=== PATIENT | female | born 1965 | race Caucasian/White ===

== ENCOUNTER → 2016-05-10 | Outpatient (REF) | payer OTHER ==
[2016-05-10 16:25] LABS: ANION GAP 9 MEQ/L (8-16); BLOOD UREA NITROGEN 7 MG/DL (7-18); CALCIUM LEVEL 9.5 MG/DL (8.5-10.1); CARBON DIOXIDE LEVEL 27 MEQ/L (21-32); CHLORIDE LEVEL 105 MEQ/L (98-107); CREATININE FOR GFR 0.75 MG/DL (0.55-1.02); GLOMERULAR FILTRATION RATE > 60.0 (>51); GLUCOSE, FASTING 145 MG/DL (70-105); POTASSIUM SERUM 4.7 MEQ/L (3.5-5.1); SODIUM LEVEL 141 MEQ/L (136-145)
== END ==
LOC: M SFHCPLAZ 12:08
PROVIDERS: ATTEND Nurse Practitioner Family
DX: E11.9 Type 2 diabetes mellitus without complications (principal)

== ENCOUNTER → 2017-10-26 | Outpatient (REF) | payer OTHER | LOC: M LAB REF 18:53 | DX: Z12.4 Encounter for screening for malignant neoplasm of cervix (principal); N95.2 Postmenopausal atrophic vaginitis | CPT/HCPCS: 88142 ==

== ENCOUNTER → 2022-05-19 | Outpatient (CLI) | payer OTHER ==
[~2022-05-19] MED LIST: ATOR1TAB19 PO; BUPR300T92 PO; BUSP10TA PO; CARV3.12 PO; D200CAP3 PO; GABA600T4 PO; IRON65TA2 PO; LISI2.5T9 PO; METF500T13 PO; TRAZ-257 PO; TRUL0.5I SC; VITA100T14 PO
== END ==
LOC: M LABSMTC 09:26
PROVIDERS: ATTEND Anesthesiology
DX: Z01.812 Encounter for preprocedural laboratory examination (principal); Z20.822 Contact with and (suspected) exposure to COVID-19

== ENCOUNTER 2022-05-24 05:58 | Day surgery (SDC) | payer OTHER ==
[~2022-05-24] VITALS: Ht 167.6 cm; Wt 99.8 kg
[2022-05-24] MEDS ORDERED: PHENYLEPHRINE 2.5% OPHTH SOL 2ML OD SCH (06:00)
[2022-05-24] MEDS ORDERED: TETRACAINE 0.5% OPHTH SOLN 4ML OD SCH (06:00)
[2022-05-24] MEDS ORDERED: FLURBIPROFEN 0.03% OPHTH SOLN 2.5 ML OD SCH (06:00)
[2022-05-24] MEDS ORDERED: CYCLOPENTOLATE 1% OPHTH SOLN 2ML BTL OD SCH (06:00)
[2022-05-24] MEDS ORDERED: LIDOCAINE 1% SDV 5ML VIAL As Ordered ONE (06:31)
[2022-05-24] MEDS ORDERED: LR 1,000 ML IV SCH (07:00)
[2022-05-24] MEDS ORDERED: MIDAZOLAM INJ 2MG/2ML VIAL As Ordered ONE (07:29)
[2022-05-24 07:53] VITALS: BP 111/62
== END 2022-05-24 08:17 | disposition home or self-care (01) ==
LOC: M SDC 05:58
PROVIDERS: ATTEND Ophthalmology
DX: H25.811 Combined forms of age-related cataract, right eye (principal); R00.2 Palpitations; I10 Essential (primary) hypertension; E11.9 Type 2 diabetes mellitus without complications; Z78.0 Asymptomatic menopausal state; Z87.891 Personal history of nicotine dependence; Z79.84 Long term (current) use of oral hypoglycemic drugs; Z79.899 Other long term (current) drug therapy
CPT/HCPCS: 66984; V2632

== ENCOUNTER → 2022-07-14 | Outpatient (CLI) | payer OTHER ==
[~2022-07-14] MED LIST changes: +ASPI81TA26 PO
== END ==
LOC: M LABSMTC 11:21
PROVIDERS: ATTEND Anesthesiology
DX: Z20.822 Contact with and (suspected) exposure to COVID-19 (principal)

== ENCOUNTER 2022-07-19 06:27 | Day surgery (SDC) | payer OTHER ==
[~2022-07-19] VITALS: Ht 167.6 cm; Wt 98.4 kg
[~2022-07-19 06:27] MED LIST changes: +CYCLOPENTOLATE 1% OPHTH SOLN 2ML BTL OS SCH; +FLURBIPROFEN 0.03% OPHTH SOLN 2.5 ML OS SCH; +PHENYLEPHRINE 2.5% OPHTH SOL 2ML OS SCH; +TETRACAINE 0.5% OPHTH SOLN 4ML OS SCH
[2022-07-19] MEDS ORDERED: LIDOCAINE 1% SDV 5ML VIAL As Ordered ONE (06:34)
[2022-07-19] MEDS ORDERED: LR 1,000 ML IV SCH ×2 (07:00→07:05)
[2022-07-19] MEDS ORDERED: fentaNYL 100 MCG/2 ML INJECTION As Ordered ONE (08:09)
[2022-07-19] MEDS ORDERED: MIDAZOLAM INJ 2MG/2ML VIAL As Ordered ONE (08:09)
[2022-07-19 08:20] VITALS: BP 132/79
== END 2022-07-19 08:40 | disposition home or self-care (01) ==
LOC: M SDC 06:27
PROVIDERS: ATTEND Ophthalmology
DX: H25.12 Age-related nuclear cataract, left eye (principal); I10 Essential (primary) hypertension; E11.9 Type 2 diabetes mellitus without complications; E78.5 Hyperlipidemia, unspecified; Z87.891 Personal history of nicotine dependence; F41.9 Anxiety disorder, unspecified; F32.A Depression, unspecified; Z79.82 Long term (current) use of aspirin; Z79.84 Long term (current) use of oral hypoglycemic drugs; Z79.899 Other long term (current) drug therapy; Z91.030 Bee allergy status; Z88.8 Allergy status to other drugs, medicaments and biological substances
CPT/HCPCS: 66984; J2250; J3010; V2632